=== PATIENT | female | born 1990 | race Caucasian/White ===

== ENCOUNTER 2020-11-29 17:29 | Emergency (ER) | payer MEDICAID, SELFPAY ==
[2020-11-29 17:30] VITALS: BP 137/83; PULSE 88; RESP 18; TEMP 36.6; O2SAT 98; BMI 39.4
--- NOTE | 2020-11-29 17:44 | US_ITS ---
STUDY: FIRST TRIMESTER OBSTETRICAL ULTRASOUND REASON FOR EXAM: Female, 30 years old pelvic cramping. 9+ weeks . LMP: 09/22/2020 TECHNIQUE: Transvaginal TECHNICAL QUALITY: Adequate. PRIOR ULTRASOUND: None. FINDINGS: There is visualization of a single gestational sac in a normal intrauterine position. The mean sac diameter (MSD) measures 2.43 cm, indicating an estimated gestational age (EGA) of 7 weeks, 3 days. The gestational sac shape is within normal limits. There is a visualized yolk sac. The yolk sac measures 0.22 cm. The placenta is non-visualized. There is visualization of an embryo within the gestational sac.. The crown-rump length (CRL) measures 0.45 cm, indicating an estimated gestational age (EGA) of 6 weeks, 2 days. There is no demonstrated cardiac activity. The estimated gestation age (EGA) by LMP is 9 weeks, 5 days. The estimated date of delivery (PIYUSH) by LMP is 06/29/2020. The estimated gestation age (EGA) by US is 6 weeks, 6 days. The estimated date of delivery (PIYUSH) by US is 07/19/2021. The uterus measures 9.2 x 6.8 x 5.5 cm.. There is no demonstrated uterine fibroid. The cervix is closed. The right ovary measures 3.8 x 2.7 x 2.4 cm.. There are multiple follicles of the right ovary without a dominant cyst. There is no visualized right adnexal mass or complex lesion. The left ovary measures 4.4 x 2.6 x 2.0 cm. There is no visualized left adnexal mass or complex lesion. There is no fluid in the cul de sac. US/Transvaginal w/Preg US IMPRESSION: 1. Single intrauterine at 6 weeks, 6 days. PIYUSH is 07/19/2021. There is no demonstrated heart rate at this time. demise versus early . Follow-up recommended. 2. Mildly prominent but otherwise normal ovaries. Electronically Signed: Edgardo Redd DO at 19:55 EDT Tel [phone], Service support ,
--- NOTE | 2020-11-29 17:48 | ED.DCSUM_ITS ---
History of Present Illness Chief Complaint: Abd Pain Informant: Patient Onset: Days Context: Gradual Onset Timing: Waxes and wanes Current Severity: Mild Maximum Severity: Moderate Narrative: Patient presents with lower abdominal cramping and pain. She is currently 8/2 weeks with her first . She states she is considered high risk secondary to a history of SVT and epilepsy. Cramping has been ongoing for the past couple of days. No spotting or bleeding. She states she is in town visiting and her [employer] [place]. She is also complaining of severe migraines for the past couple of days. It is a throbbing headache in the occipital region. She did have vomiting a couple days ago. She states typically she will take naproxen but has only been taking Tylenol with her . - Past Medical History (1) SVT (supraventricular tachycardia) Status: Resolved (2) Epilepsy Status: Chronic Past Medical History - Allergies and Home Meds Allergies/Adverse Reactions: Allergies phenytoin [From Dilantin] Allergy (Verified 11/29/20 17:32) SEIZURES Primary Care Physician: IESHA PONCE [Other] Prior records reviewed: Yes Smoking Status: Former smoker Review of Systems General: Denies: Chills, Fever Eyes: Denies: Visual changes - bilaterally ENT: Denies: Bilateral ear pain Cardiovascular: Denies: Chest pain Respiratory: Denies: Dyspnea, Cough Gastrointestinal: Reports: Abdominal pain, Vomiting. Denies: Diarrhea Genitourinary: Denies: Dysuria, Hematuria Musculoskeletal: Denies: Swelling, Extremity Pain Neurological: Reports: Headache. Denies: Weakness, Parasthesia Hematologic: Denies: Easy bruising, Easy bleeding Allergy: Denies: Uticaria Physical Exam Vital Signs/Narrative: Vital Signs Temp Pulse Resp BP Pulse Ox 11/29/20 17:30 97.9 F 88 18 137/83 H 98 Inital Vital Signs reviewed: Yes General: Well nourished, Well developed Head: Normocephalic ENT: Moist mucous membranes Neck: Supple Cardiovascular: Regular rate, Regular rhythm Respiratory: No distress, CTA bilaterally Abdomen: Soft, Nontender, Hypoactive bowel sounds Extremities: Nontender Skin: Normal color Neurological: Alert, Oriented x3, Normal Strength, Normal Sensation Psychological: Normal affect Diagnostic/Tx/Re-eval Impressions Obstetrics Ultrasound 11/29/20 17:44 IMPRESSION: 1. Single intrauterine at 6 weeks, 6 days. PIYUSH is 07/19/2021. There is no demonstrated heart rate at this time. demise versus early . Follow-up recommended. 2. Mildly prominent but otherwise normal ovaries. Electronically Signed: Edgardo Redd DO at 19:55 EDT Tel [phone], Service support , 11/29/20 17:44 Transvaginal w/Preg US [US] Stat Laboratory Results 11/29/20 11/29/20 11/29/20 18:10 18:10 18:20 HCG, Quant 13901 H Urine Color Straw Urine Clarity Sl. Cloudy Urine pH 6.5 Ur Specific [place] 1.015 Urine Protein Negative Urine Glucose (UA) Normal Urine Ketones Negative Urine Occult Blood Negative Urine Nitrite Negative Urine Bilirubin Negative Urine Urobilinogen Normal Ur Leukocyte Esterase 25 H Urine RBC 0-5 SEEN Urine WBC 0 SEEN Ur Squamous Epith Cells 5-10 SEEN Urine Bacteria 2+ Urine Mucus 0 SEEN Blood Type A POSITIVE - Medical Decision Making Patient was given Reglan, Benadryl, IV fluids. On repeat evaluation patient reports improvement in his headache. Pelvic ultrasound was performed and reveals intrauterine at 6-1/2 to 7-1/2 weeks along. No heart activity noted at this time. No abnormal bleeding. Test results discussed with the patient. She is reassured with these findings and will follow up with her [employer]. ED Disposition - Plan for ED Patient: Disposition: Home or Assisted Living Diagnosis: Pelvic cramping, First trimester , Migraine Instructions: ED, Migraine (Classical), ED Abdominal Pain, Early Referrals: IESHA PONCE [Other]
[2020-11-29] MEDS: Metoclopramide 10 MG/2 ML Vial 5 MG IV (18:09)
[2020-11-29] MEDS: DiphenhydrAMINE 50 MG/ML Syringe 25 MG IV (18:09)
[2020-11-29] MEDS: 0.9% Normal Saline 1,000 ML 1000 ML IV (18:09)
[2020-11-29 18:35] LABS: Mucous, Urine 0 SEEN /hpf (<or=2+); White Blood Cells 0 SEEN /hpf (0-5)
[2020-11-29 18:58] LABS: Color, Urine Straw (Yellow); Glucose, Dipstick Normal (Normal); Ketone-Dipstick Negative (Negative); Leukocyte Esterase-Dipstick 25 /ul (Negative); Nitrite-Dipstick Negative (Negative); Occult Blood-Urine Negative /ul (Negative); Protein-Dipstick Negative (Negative); Specific Gravity, Urine 1.015 (1.002-1.030); Urine Bilirubin Dipstick Negative (Negative); Urine Clarity Sl. Cloudy (Clear); Urine Urobilinogen Normal (Normal); Urine pH 6.5 (5.0 - 8.0)
[2020-11-29 19:15] LABS: Bacteria 2+ /hpf (None Seen); Red Blood Cells-Urine 0-5 SEEN /hpf (0-5); Squamous Epithelial Cells - UA 5-10 SEEN /hpf (5-10)
[2020-11-29 20:23] VITALS: BP 123/67; PULSE 86; RESP 16; O2SAT 100
== END 2020-11-29 20:24 | disposition home or self-care (01) ==
PROVIDERS: Emergency Provider Emergency Medicine
DX: O26.891 Other specified pregnancy related conditions, first trimester (principal); O99.351 Diseases of the nervous system complicating pregnancy, first trimester; R10.2 Pelvic and perineal pain; G43.909 Migraine, unspecified, not intractable, without status migrainosus; Z3A.01 Less than 8 weeks gestation of pregnancy; Z87.891 Personal history of nicotine dependence
CPT/HCPCS: 76817; 81001; 84702; 86900; 86901; 96374; 96375; 99284; J7030; A4216

== ENCOUNTER 2022-04-20 18:31 | Emergency (ER) | payer MEDICAID, SELFPAY ==
[2022-04-20 18:32] VITALS: BP 133/94; PULSE 96; RESP 20; TEMP 36.6; O2SAT 100; BMI 30.9
--- NOTE | 2022-04-20 18:36 | EKG12_ITS ---
Test Reason : CP Blood Pressure : / mmHG Vent. Rate : 079 BPM Atrial Rate : 079 BPM P-R Int : 122 ms QRS Dur : 084 ms QT Int : 384 ms P-R-T Axes : 066 059 026 degrees QTc Int : 440 ms Normal sinus rhythm Normal ECG Confirmed by EDMOND GARCÍA, CAROLA ([id number]), editor managing director RADHA RODRIGUEZ ([id number]) on 04/24/2022 7:49:19 AM Referred By: JYOTI Confirmed By:CAROLA PRUITT MD
--- NOTE | 2022-04-20 18:52 | RAD_ITS ---
STUDY: X-RAY CHEST REASON FOR EXAM: Female, 31 years old. CHEST PAIN chest pain TECHNIQUE: XR Chest 1 View COMPARISON: None FINDINGS: There is no demonstrated pleural abnormality. Normal size heart. Normal mediastinum and john. Normal visualized pulmonary arteries. Normal visualized aortic arch and descending thoracic aorta. Normal visualized thoracic spine. Normal visualized ribs, clavicles, and shoulders. There is no demonstrated abnormality of the visualized soft tissue structures of the upper abdomen. RAD/Chest 1 View (Portable) IMPRESSION: There are no acute findings. Electronically Signed: Magen Light MD at 19:24 EDT ,
[2022-04-20 19:17] LABS: Anion Gap 7 (5-15); BUN 10 mg/dL (7-18); BUN/Creat Ratio 12.9 RATIO (10-20); Chloride 108 mmol/L (98-107); Creatinine, Serum 0.77 mg/dL (0.55-1.02); EST Glomerular Filtration Rate 92 mL/min (>60); Est Glom Filt Rate - Afr Amer 111 mL/min (>60); Estimated Creatinine Clearance 91.41 ml/min; Glucose 92 mg/dL (74-106); Potassium 3.6 mmol/L (3.5-5.1); Sodium Level 137 mmol/L (136-145); Troponin-I HS 3 pg/mL (3.0-54.0)
[2022-04-20 19:54] LABS: Absolute Lymphocyte Count 1.24 X10^3/uL (0.83-4.51); Absolute Neutrophil Count 2.6 X10^3/uL (2.0-7.7); Basophil# 0.03 X10^3/uL; Basophil% 0.6 % (0-1); Eosinophil# 0.19 X10^3/uL; Hematocrit 41.3 % (37-47); Hemoglobin 13.4 g/dL (12.0-15.0); Lymphocyte # 1.24 X10^3/ul (0.83-4.51); Lymphocyte % 25.9 % (19-41); Mean Corp Hgb Conc 32.4 g/dL (32-36); Mean Corpuscular Hgb 25.4 pg (27.0-32.0); Mean Corpuscular Volume 78.4 fL (81-99); Mean Platelet Vol. 11.2 fl (6.2-12.0); Monocyte# 0.71 X10^3/uL; Monocyte% 14.8 % (0-10); NRBC Flagged by Analyzer 0 % (0-5); Neutrophil % 54.3 % (47-70); Platelet Count 237 K/mm3 (150-450); RBC Distribution Width SD 42.5 fl (35.1-43.9); Red Blood Count 5.27 M/mm3 (4.2-5.4); White Blood Count 4.8 K/mm3 (4.4-11.0)
[2022-04-20 20:50] VITALS: BP 135/89; PULSE 66; RESP 14; TEMP 37.3; O2SAT 98
[2022-04-20] MEDS: Ondansetron 4 MG/2 ML Vial IV (21:15)
[2022-04-20] MEDS: 0.9% Normal Saline 1,000 ML 999 ML IV (21:19)
[2022-04-20 22:42] VITALS: BP 148/94; PULSE 60; RESP 15; O2SAT 98
--- NOTE | 2022-04-20 23:07 | EDS_ITS ---
HPI History of Present Illness Chief Complaint: Chest Pain Informant: patient Narrative Narrative: Patient is a 31-year-old female with history of SVT, asthma, epilepsy and recent diagnosis of COVID-19 infection presenting chest discomfort, cough and other viral illness symptoms. Patient states she was worried because of the dark phlegm that she has been coughing up and her history of SVT/asthma and thought she should be evaluated. She started having symptoms 2 days ago and had a positive COVID test yesterday. His symptoms started with a sore throat. She now feels cold, has nausea, vomiting, diarrhea, body aches and chest discomfort from coughing. Denies any fever. Denies any difficulty breathing. 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 No other complaints at this time. [facility] Medical History Asthma SVT (supraventricular tachycardia) Home Medications buspirone 10 mg tablet 10 mg PO TID 04/20/22 [History Last Taken Unknown] fluvoxamine 100 mg tablet 100 mg PO BID 04/20/22 [History Last Taken Unknown] ondansetron 4 mg disintegrating tablet 4 mg PO Q6H PRN nausea and vomiting #20 tabs 04/20/22 [Rx Last Taken Unknown] prazosin 1 mg capsule 2 mg PO QHS 04/20/22 [History Last Taken Unknown] trazodone 50 mg tablet 50 mg PO QHS PRN Insomnia 04/20/22 [History Last Taken Unknown] Allergy/AdvReac Type Severity Reaction Status Date / Time phenytoin [From Dilantin] Allergy SEIZURES Verified 04/20/22 18:33 Social History Smoking Status: Current every day smoker tobacco type: cigarettes ROS ROS ED Constitutional Constitutional ED: Reports chills; Denies fever(s) Eyes Eyes: Denies change in vision ENT ENT ED: Reports sore throat; Denies ear pain or rhinorrhea Cardiovascular Cardiovascular: Reports chest pain; Denies palpitations Respiratory/Chest Respiratory/Chest: Reports cough; Denies dyspnea Gastrointestinal Gastrointestinal: Reports diarrhea, nausea and vomiting; Denies abdominal pain Genitourinary Genitourinary ED: Denies dysuria or hematuria Musculoskeletal Musculoskeletal: Reports myalgias; Denies arthralgias or back pain Integumentary Denies rash Neurologic Neurologic: Reports headache(s); Denies paresthesias or weakness Psychiatric Psychiatric: Denies anxiety EXAM Physical Exam Const Vital Signs: 04/20/22 18:32 04/20/22 20:50 04/20/22 20:52 Temperature 97.8 F 99.1 F Temperature Source Temporal Oral Pulse Rate 96 66 Respiratory Rate 20 H 14 Blood Pressure 133/94 H 135/89 H Blood Pressure Mean 107 104 Pulse Ox 100 98 Oxygen Delivery Method Room Air Room Air Room Air 04/20/22 22:42 Temperature Temperature Source Pulse Rate 60 Respiratory Rate 15 Blood Pressure 148/94 H Blood Pressure Mean 112 Pulse Ox 98 Oxygen Delivery Method Room Air Positive well nourished and well developed General Appearance ED: well developed and NAD HEENT Reports TM's clear and moist mucous membranes atraumatic Tympanic Membrane ED: Yes TM's clear Eyes PERRL and EOMs intact bilaterally Neck supple and no JVD Neck Narrative: No nuchal rigidity Chest Wall inspection of chest normal and palpation of chest normal Resp normal respiratory effort and clear to auscultation bilaterally Auscultation: rhonchi right lower; Negative for wheezes Cardio regular rate, regular rhythm and no murmurs GI normal to inspection, nondistended, normoactive bowel sounds and soft to palpation Back/Spine no CVA tenderness Extremity normal to inspection General Extremety ED: Negative for edema or pulses abnormal General Extremity: Negative for edema or pulses abnormal Neuro oriented x3 Motor Exam: Negative for general weakness Psych mental status grossly normal Skin no rashes or lesions noted Heart Score History: Slightly/Non-Suspicious ECG: Normal Age: </= 45 years Risk Factors: 1 or 2 Risk Factors Troponin: </= Normal Limit Score: 1 MDM MDM MDM Narrative Medical decision making narrative: Patient is evaluated for chest discomfort in the setting of recent COVID-19 infection. She appears nontoxic in no acute distress. Vital signs are normal. She is PE RC negative I do not suspect a PE is the cause of her symptoms. EKG and has since he troponin are normal. Chest x-rays not show any acute process. Work-up is largely unremarkable. Patient is given IV fluids and Zofran with improvement of her symptoms. She states she feels better. Discussed that if she still not feeling well and she is within 5 days of symptoms she should not go back to work. She verbalized agreement understand this. She is given return precautions. She is discharged home in stable condition. Lab Data Labs: Laboratory Results - last 24 hr 04/20/22 04/20/22 18:51 18:51 WBC 4.8 RBC 5.27 Hgb 13.4 Hct 41.3 MCV 78.4 L MCH 25.4 L MCHC 32.4 RDW Std Deviation 42.5 RDW Coeff of Chay 15.0 H Plt Count 237 MPV 11.2 Immature Gran % (Auto) 0.400 Neut % (Auto) 54.3 Lymph % (Auto) 25.9 [place] % (Auto) 14.8 H Eos % (Auto) 4.0 Baso % (Auto) 0.6 Absolute Neuts (auto) 2.6 Absolute Lymphs (auto) 1.24 Nucleated RBC % 0 Sodium 137 Potassium 3.6 Chloride 108 H Carbon Dioxide 22.0 Anion Gap 7 BUN 10 Creatinine 0.77 Estim Creat Clear Calc 91.41 Est GFR (MDRD) Af Amer 111 Est GFR (MDRD) Non-Af 92 BUN/Creatinine Ratio 12.9 Glucose 92 Calcium 9.0 Troponin I High Sens 3 Radiography Chest X-Ray - ED: 2 View, Read by ED Physician, Read by Radiologist and No Acute Disease Diagnostic Testing: Clinical Impression(s) from Imaging Studies Chest X-Ray 04/20/22 18:52 IMPRESSION: There are no acute findings. Electronically Signed: Magen Light MD at 19:24 EDT Reading Location ID and State: [facility] / [place] , Service support , Rhythm Strip Rhythm Strip: Sinus Rhythm Rate: 79 Ectopy: None EKG Initial EKG: Attestation: I personally reviewed and interpreted this EKG as follows: Interpretation: Sinus Rhythm Comments: Normal sinus rhythm rate of 79 Normal axis Normal intervals Normal ST segments Discharge Plan Triage Chief Complaint: Chest Pain ED Provider: Adri Araujo Dx/Rx/DC Orders Clinical Impression: COVID-19, Nausea, Chest pain Instructions: Coronavirus Disease 2019 (COVID-19): Caring for Yourself or Others Prescriptions: New ondansetron 4 mg tablet,disintegrating 4 mg PO Q6H PRN (Reason: nausea and vomiting) Qty: 20 0RF No Action trazodone 50 mg Tablet 50 mg PO QHS PRN (Reason: Insomnia) prazosin 1 mg capsule 2 mg PO QHS fluvoxamine 100 mg tablet 100 mg PO BID Label Comments: TAKE 1/2 (ONE-HALF) TABLET BY MOUTH ONCE DAILY IN THE MORNING AND 1 TABLET EVERY DAY AT BEDTIME FOR 7 DAYS THEN GO TO 1 TABLET TWICE DAILY buspirone 10 mg Tablet 10 mg PO TID Primary Care Provider: Care Physician,No Primary Referrals: Care Physician,No Primary [Primary Care Provider] - Activity Restrictions/Additional Instructions: You should quarantine for 5 days, longer if you are still feeling unwell. Drink lots of fluids. Disposition Disposition: Home, Self Care
[2022-04-20 23:20] VITALS: BP 126/90
== END 2022-04-20 23:21 | disposition home or self-care (01) ==
PROVIDERS: Emergency Provider Emergency Medicine; Visit Provider Emergency Medicine
DX: U07.1 COVID-19 (principal); I47.1 Supraventricular tachycardia; G40.909 Epilepsy, unspecified, not intractable, without status epilepticus; F17.210 Nicotine dependence, cigarettes, uncomplicated; J45.909 Unspecified asthma, uncomplicated; Z79.899 Other long term (current) drug therapy
CPT/HCPCS: 71045; 80048; 84484; 85025; 93005; 96361; 96374; 99284; A4216; J2405

== ENCOUNTER 2022-08-22 14:46 | Emergency (ER) | payer MEDICAID, SELFPAY ==
[2022-08-22 14:47] VITALS: BP 130/92; PULSE 87; RESP 16; TEMP 36.4; O2SAT 98; BMI 32.5
[2022-08-22 14:49] VITALS: BP 130/92; PULSE 87; RESP 16; TEMP 36.4; O2SAT 96; O2SAT 98
--- NOTE | 2022-08-22 15:07 | EDS_ITS ---
HPI HPI - URI History of Present Illness Chief Complaint: Cough Narrative Narrative: 32-year-old female past medical history of SVT and epilepsy presents with URI type symptoms that she has had for the last 5 days. She states her symptoms began on Saturday and somewhat intermittent. She had nasal congestion alternating with runny nose. She had subjective fever and chills. She then had nausea and vomiting. She developed loose stool and diarrhea. She is able to hold down liquids but states that she vomits when she tries to eat. She had to call off work today. She is a smoker. She denies any exacerbating or alleviating factors but states that she wanted to make sure she was not dehydrated from her nausea and vomiting, although she has been drinking liquids. She is unsure if she has influenza. ROS ROS ED ROS Narrative Constitutional: No documented fever subjective however, positive chills. HEENT: No sore throat. No neck pain. No loss of vision. Positive nasal congestion and rhinorrhea. Cardiovascular: No chest pain. No palpitations. No pedal edema. Respiratory: Positive occasionally productive cough, no shortness of breath. Abdominal: No abdominal pain. Positive nausea. Positive diarrhea and vomiting. Able to hold down liquids however. Genitourinary: No dysuria. No hematuria. Musculoskeletal: Positive myalgias. No arthralgias. Neurologic: No headaches. No dizziness. No lightheadedness. Skin: No rash. No change in color. Psychiatric: No depression. No anxiety. [facility] Medical History Asthma SVT (supraventricular tachycardia) Home Medications buspirone 10 mg tablet 10 mg PO TID 04/20/22 [History Last Taken Unknown] fluvoxamine 100 mg tablet 100 mg PO BID 04/20/22 [History Last Taken Unknown] ondansetron 4 mg disintegrating tablet 4 mg PO Q6H PRN nausea and vomiting #20 tabs 04/20/22 [Rx Last Taken Unknown] prazosin 1 mg capsule 2 mg PO QHS 04/20/22 [History Last Taken Unknown] trazodone 50 mg tablet 50 mg PO QHS PRN Insomnia 04/20/22 [History Last Taken Unknown] ondansetron 4 mg disintegrating tablet 4 mg PO Q6H PRN nausea and vomiting #14 tabs 08/22/22 [Rx Last Taken Unknown] Allergy/AdvReac Type Severity Reaction Status Date / Time phenytoin [From Dilantin] Allergy SEIZURES Verified 08/22/22 14:47 Social History Smoking Status: Current every day smoker tobacco type: cigarettes EXAM Physical Exam Narrative Exam Narrative: Afebrile. Vital signs noted. HEENT: Normocephalic. Atraumatic. PERRL, EOMI. Neck soft and supple. No point tenderness or step off. Cardiovascular: Regular rate and rhythm. No murmurs, rubs, or gallops appreciated. Respiratory: No tachypnea. Lungs clear to auscultation bilaterally. Gastrointestinal: Abdomen soft, nontender, with normoactive bowel sounds. No rebound or guarding. Neurological: Awake. Alert. Nonfocal, nonlateralizing. Skin: No rash. Normal color. No pallor. Musculoskeletal: No pedal edema. Full range of motion extremities. Const Vital Signs: 08/22/22 14:47 08/22/22 14:49 08/22/22 14:49 Temperature 97.6 F L 97.6 F L Temperature Source Temporal Temporal Pulse Rate 87 87 Respiratory Rate 16 16 Respiratory Effort Normal Blood Pressure 130/92 H 130/92 H Blood Pressure Mean 104 104 Pulse Ox 98 98 Oxygen Delivery Method Room Air Room Air Room Air MDM MDM MDM Narrative Medical decision making narrative: Pulse ox is 98% on room air without evidence of hypoxia. Patient states that she vapes, so smoking cessation was discussed. She is not tachycardic. I do not feel that she needs IV fluids or chest x-ray. We discussed the utility of swabbing and I do feel that she has more of a viral syndrome as she is already in day 5 of her symptoms. Treatment will be symptomatic with [id number] medications. She was given 1 Zofran ODT here in the emergency department and a prescription written for her. She was given a note to be off work today. IFISH can be discharged safely home with follow-up. Return instructions to the emergency department were reviewed. Disposition is discharged home in stable condition. Discharge Plan Triage Chief Complaint: Cough ED Provider: Paulino Dave Dx/Rx/DC Orders Clinical Impression: URI (upper respiratory infection), Viral syndrome Instructions: ED Viral Syndrome (Adult), ED URI, Viral, No Abx (Adult) Prescriptions: New ondansetron 4 mg tablet,disintegrating 4 mg PO Q6H PRN (Reason: nausea and vomiting) Qty: 14 0RF No Action trazodone 50 mg Tablet 50 mg PO QHS PRN (Reason: Insomnia) prazosin 1 mg capsule 2 mg PO QHS fluvoxamine 100 mg tablet 100 mg PO BID Label Comments: TAKE 1/2 (ONE-HALF) TABLET BY MOUTH ONCE DAILY IN THE MORNING AND 1 TABLET EVERY DAY AT BEDTIME FOR 7 DAYS THEN GO TO 1 TABLET TWICE DAILY buspirone 10 mg Tablet 10 mg PO TID ondansetron 4 mg tablet,disintegrating 4 mg PO Q6H PRN (Reason: nausea and vomiting) Qty: 20 0RF Stand Alone Forms: ED Work / School Excuse Primary Care Provider: Care Physician,No Primary Referrals: Care Physician,No Primary [Primary Care Provider] - Disposition Disposition: Home, Self Care
[2022-08-22] MEDS: Ondansetron ODT 4 MG Tablet PO (15:21)
[2022-08-22 15:23] VITALS: PULSE 88; RESP 15; O2SAT 99
== END 2022-08-22 15:23 | disposition home or self-care (01) ==
LOC: ED 15:12
PROVIDERS: Emergency Provider Emergency Medicine; Visit Provider Emergency Medicine
DX: J06.9 Acute upper respiratory infection, unspecified (principal); B34.9 Viral infection, unspecified; F17.210 Nicotine dependence, cigarettes, uncomplicated
CPT/HCPCS: 99283

== ENCOUNTER 2022-09-25 12:54 | Emergency (ER) | payer MEDICAID, SELFPAY ==
[2022-09-25 12:55] VITALS: BP 128/89; PULSE 82; RESP 15; TEMP 36.8; O2SAT 97; BMI 34.5
--- NOTE | 2022-09-25 13:29 | RAD_ITS ---
STUDY: X-RAY CHEST REASON FOR EXAM: Female, 32 years old. Chest pain TECHNIQUE: Single AP portable view of the chest. COMPARISON: Comparison is made with prior study 04/20/2022. FINDINGS: EKG electrodes are seen. Scattered calcified granulomas. The lungs are clear and expanded. There is no demonstrated pleural abnormality. Normal size heart. Normal mediastinum and john. Normal visualized pulmonary arteries. Normal visualized aortic arch and descending thoracic aorta. Normal visualized thoracic spine. Normal visualized ribs, clavicles, and shoulders. There is no demonstrated abnormality of the visualized soft tissue structures of the upper abdomen. RAD/Chest 1 View (Portable) IMPRESSION: No acute abnormality is seen. Electronically Signed: Lai Stevenson MD at 14:23 EST ,
--- NOTE | 2022-09-25 13:29 | EKG12_ITS ---
Test Reason : PALPITATIONS Blood Pressure : / mmHG Vent. Rate : 062 BPM Atrial Rate : 062 BPM P-R Int : 114 ms QRS Dur : 090 ms QT Int : 416 ms P-R-T Axes : 059 060 036 degrees QTc Int : 422 ms Normal sinus rhythm with sinus arrhythmia Normal ECG Confirmed by JAMAL GARCÍA, BAIRON ([id number]), managing editor ALEXANDER LAWRENCE ([id number]) on 09/26/2022 9:14:46 AM Referred By: RICHARD Confirmed By:BAIRON BERRY MD
[2022-09-25 13:43] LABS: Absolute Lymphocyte Count 2.23 X10^3/uL (0.83-4.51); Absolute Neutrophil Count 4.8 X10^3/uL (2.0-7.7); Basophil# 0.04 X10^3/uL; Basophil% 0.5 % (0-1); Eosinophil# 0.41 X10^3/uL; Eosinophils% 5.1 % (0-5); Hematocrit 37.7 % (37-47); Hemoglobin 12.2 g/dL (12.0-15.0); Lymphocyte # 2.23 X10^3/ul (0.83-4.51); Lymphocyte % 27.5 % (19-41); Mean Corp Hgb Conc 32.4 g/dL (32-36); Mean Corpuscular Hgb 25.5 pg (27.0-32.0); Mean Corpuscular Volume 78.7 fL (81-99); Mean Platelet Vol. 10.6 fl (6.2-12.0); Monocyte% 7.4 % (0-10); NRBC Flagged by Analyzer 0 % (0-5); Neutrophil % 59.3 % (47-70); Platelet Count 283 K/mm3 (150-450); RBC Distribution Width CV 15.5 % (11.6-14.6); RBC Distribution Width SD 44.1 fl (35.1-43.9); Red Blood Count 4.79 M/mm3 (4.2-5.4); White Blood Count 8.1 K/mm3 (4.4-11.0)
--- NOTE | 2022-09-25 13:44 | CM.ED ---
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 Patient was sitting in bed and agreeable to speak with SW. SW inquired about patient's insurance and current PCP. [facility] and did not have a P[facility] currently. SW provided patient with list of PCPs within 15 miles of patient's address [facility] SW also reviewed Where and When to Go information, focusing on nurse and transportation information associated with patient's insurance. Patient was receptive towards resources provided and voiced no other needs or concerns. SW available if needs arise. Nia Hunt MDM SR, [place]
--- NOTE | 2022-09-25 13:49 | EDS_ITS ---
HPI History of Present Illness Chief Complaint: Palpitations Informant: patient Onset/Context/Timing Onset: Today (Past hour or 2) Activity at onset: sudden and onset Timing: Intermittent and Lasts (Seconds) Quality: Positive for Dull Location: - (Upper mid chest without radiation.) Current Severity: Gone Maximum Severity: Mild-moderate Worsened By: Nothing Relieved By: Nothing Associated Symptoms: Positive for Palpitations; Negative for Nausea, Vomiting, D iaphoresis, Dyspnea, Cough or Lightheadedness Narrative Narrative: Patient states she felt intermittent skipping palpitations and upper chest discomfort that would occur together and resolved together repeatedly in the past hour or 2. She states she has had this in the past but it was long time ago, sometimes it led to episodes of SVT. She was on a beta-val, following with a salvage mechanic and she did not have any episodes for a long time so she discontinued the beta-val months ago, and she has not followed up with a salvage mechanic, that was not in this town. She currently does not take any heart medications. She had no near-syncope or syncope today. No recent illness, fall or injury, no recent drugs or stimulants today, and she is feeling fine now. Patient states she was offered an ablation but wants to try everything else first because she had a poor experience having a prior procedure and sedation where she ended up having seizures. [facility] Medical History Asthma SVT (supraventricular tachycardia) Home Medications buspirone 10 mg tablet 10 mg PO TID 04/20/22 [History Last Taken Unknown] fluvoxamine 100 mg tablet 100 mg PO BID 04/20/22 [History Last Taken Unknown] ondansetron 4 mg disintegrating tablet 4 mg PO Q6H PRN nausea and vomiting #20 tabs 04/20/22 [Rx Last Taken Unknown] prazosin 1 mg capsule 2 mg PO QHS 04/20/22 [History Last Taken Unknown] trazodone 50 mg tablet 50 mg PO QHS PRN Insomnia 04/20/22 [History Last Taken Unknown] ondansetron 4 mg disintegrating tablet 4 mg PO Q6H PRN nausea and vomiting #14 t abs 08/22/22 [Rx Last Taken Unknown] metoprolol tartrate 25 mg tablet 12.5 mg PO BID #30 tabs 09/25/22 [Rx Last Taken Unknown] Allergy/AdvReac Type Severity Reaction Status Date / Time phenytoin [From Dilantin] Allergy SEIZURES Verified 09/25/22 12:55 Social History Smoking Status: Former smoker ROS ROS ED Constitutional Constitutional ED: Denies chills or fever(s) Eyes Eyes: Denies change in vision or diplopia ENT ENT ED: Denies rhinorrhea or sore throat Cardiovascular Cardiovascular: Reports chest pain and palpitations; Denies lightheadedness or racing heartbeat Respiratory/Chest Respiratory/Chest: Denies cough or dyspnea Gastrointestinal Gastrointestinal: Denies abdominal pain, diarrhea, nausea or vomiting Genitourinary Genitourinary ED: Denies dysuria or hematuria Musculoskeletal Musculoskeletal: Denies back pain or neck pain Integumentary Denies abscess or rash Neurologic Neurologic: Denies headache(s), paresthesias or weakness Psychiatric Psychiatric: Denies anxiety or suicidal thoughts EXAM Physical Exam Const Vital Signs: 09/25/22 12:55 09/25/22 13:19 09/25/22 13:35 Temperature 98.3 F Temperature Source Temporal Pulse Rate 82 Respiratory Rate 15 Respiratory Effort Normal Non-Labored Blood Pressure 128/89 H Blood Pressure Mean 102 Pulse Ox 97 Oxygen Delivery Method Room Air Room Air Positive well nourished and well developed General Appearance ED: well developed and NAD HEENT Reports moist mucous membranes normocephalic and atraumatic Eyes PERRL and EOMs intact bilaterally Neck full ROM and supple Resp normal respiratory effort and clear to auscultation bilaterally Cardio regular rate, regular rhythm and no murmurs GI non-tender and non-distended Auscultation: normoactive bowel sounds Palpation: soft Back/Spine no CVA tenderness General Back: other FROM Extremity normal to inspection General Extremety ED: Negative for edema, pulses abnormal or tenderness General Extremity: Negative for edema or pulses abnormal Neuro oriented x3, CN's II-XII intact bilaterally and no sensory deficits noted Sensorium / Orientation: awake and alert Motor Exam: strength 5/5 throughout Skin no rashes or lesions noted and no wounds Heart Score History: Slightly/Non-Suspicious ECG: Normal Age: </= 45 years Risk Factors: 1 or 2 Risk Factors Troponin: </= Normal Limit Score: 1 MDM MDM MDM Narrative Medical decision making narrative: Work-up including 1 view chest x-ray which on my interpretation is normal, and troponin, is negative. I do not think she is having acute coronary syndrome, I think the discomfort was related to the palpitations and/or dysrhythmia. Patient was given metoprolol 25 mg orally while we were awaiting the work-up, she had no recurrent symptoms and felt well. She has tolerated low-dose metoprolol in the past. We will prescribe her 12.5 mg twice daily and advised following up with cardiology routinely, she is comfortable with that plan. We discussed reasons to return. Lab Data Attestation: I reviewed the patient's lab results. Labs: Laboratory Results - last 24 hr 09/25/22 09/25/22 13:36 13:36 WBC 8.1 RBC 4.79 Hgb 12.2 Hct 37.7 MCV 78.7 L MCH 25.5 L MCHC 32.4 RDW Std Deviation 44.1 H RDW Coeff of Chay 15.5 H Plt Count 283 MPV 10.6 Immature Gran % (Auto) 0.200 Neut % (Auto) 59.3 Lymph % (Auto) 27.5 [place] % (Auto) 7.4 Eos % (Auto) 5.1 H Baso % (Auto) 0.5 Absolute Neuts (auto) 4.8 Absolute Lymphs (auto) 2.23 Nucleated RBC % 0 Sodium 139 Potassium 3.9 Chloride 108 H Carbon Dioxide 25.0 Anion Gap 6 BUN 14 Creatinine 0.76 Estim Creat Clear Calc 91.77 Est GFR (MDRD) Af Amer 113 Est GFR (MDRD) Non-Af 94 BUN/Creatinine Ratio 18.4 Glucose 118 H Calcium 8.4 L Troponin I High Sens < 3 L Radiography Diagnostic Testing: Clinical Impression(s) from Imaging Studies Chest X-Ray 09/25/22 13:29 IMPRESSION: No acute abnormality is seen. Electronically Signed: Lai Stevenson MD at 14:23 EST , Rhythm Strip Rhythm Strip: Sinus Rhythm Rate: 65 Ectopy: None EKG Initial EKG: Attestation: I personally reviewed and interpreted this EKG as follows: Interpretation: Sinus Rhythm and No Acute Injury Pattern Comments: nml EKG Prior EKG tracings: available for review Prior: Unchanged Discharge Plan Triage Chief Complaint: Palpitations ED Provider: Zackery Sauer Dx/Rx/DC Orders Clinical Impression: Intermittent chest pain, Palpitations Instructions: ED Palpitations Prescriptions: New metoprolol tartrate 25 mg tablet 12.5 mg PO BID Qty: 30 0RF No Action trazodone 50 mg Tablet 50 mg PO QHS PRN (Reason: Insomnia) prazosin 1 mg capsule 2 mg PO QHS fluvoxamine 100 mg tablet 100 mg PO BID Label Comments: TAKE 1/2 (ONE-HALF) TABLET BY MOUTH ONCE DAILY IN THE MORNING AND 1 TABLET EVERY DAY AT BEDTIME FOR 7 DAYS THEN GO TO 1 TABLET TWICE DAILY buspirone 10 mg Tablet 10 mg PO TID ondansetron 4 mg tablet,disintegrating 4 mg PO Q6H PRN (Reason: nausea and vomiting) Qty: 20 0RF ondansetron 4 mg tablet,disintegrating 4 mg PO Q6H PRN (Reason: nausea and vomiting) Qty: 14 0RF Primary Care Provider: Care Physician,No Primary Referrals: Miguel Mansfield MD [Med Staff - Active Staff] - (call for appt for local cardiology follow up) Care Physician,No Primary [Primary Care Provider] - Disposition Disposition: Home, Self Care
[2022-09-25 14:00] LABS: Anion Gap 6 (5-15); BUN 14 mg/dL (7-18); BUN/Creat Ratio 18.4 RATIO (10-20); Calcium,Total 8.4 mg/dL (8.5-10.1); Chloride 108 mmol/L (98-107); Creatinine, Serum 0.76 mg/dL (0.55-1.02); EST Glomerular Filtration Rate 94 mL/min (>60); Est Glom Filt Rate - Afr Amer 113 mL/min (>60); Estimated Creatinine Clearance 91.77 ml/min; Glucose 118 mg/dL (74-106); Potassium 3.9 mmol/L (3.5-5.1); Sodium Level 139 mmol/L (136-145); Troponin-I HS < 3 pg/mL (3.0-54.0)
[2022-09-25] MEDS: Metoprolol Tartrate 25 MG Tablet PO (14:03)
[2022-09-25 15:16] VITALS: BP 125/80; PULSE 58; RESP 14; O2SAT 99
== END 2022-09-25 15:16 | disposition home or self-care (01) ==
PROVIDERS: Emergency Provider Emergency Medicine; Visit Provider Emergency Medicine
DX: R07.9 Chest pain, unspecified (principal); R00.2 Palpitations; Z87.891 Personal history of nicotine dependence
CPT/HCPCS: 71045; 80048; 84484; 85025; 93005; 99285; A4216

== ENCOUNTER 2022-10-08 09:02 | Emergency (ER) | payer MEDICAID, SELFPAY ==
[2022-10-08 09:02] VITALS: BP 155/96; PULSE 95; RESP 16; TEMP 36.2; O2SAT 100; BMI 31.9
--- NOTE | 2022-10-08 09:34 | EKG12_ITS ---
Test Reason : Blood Pressure : / mmHG Vent. Rate : 059 BPM Atrial Rate : 059 BPM P-R Int : 112 ms QRS Dur : 090 ms QT Int : 438 ms P-R-T Axes : 065 060 050 degrees QTc Int : 433 ms Sinus bradycardia with sinus arrhythmia Otherwise normal ECG Confirmed by JAMAL GARCÍA, BAIRON ([id number]), international editorial producer ALEXANDER LAWRENCE ([id number]) on 10/09/2022 8:30:45 AM Referred By: Confirmed By:BAIRON BERRY MD
--- NOTE | 2022-10-08 09:49 | EX.ED.DYSGE1 ---
HPI History of Present Illness Chief Complaint: Hypertension Informant: patient Narrative Narrative: Presents by private evaluation still intermittent palpitations chest pain and lightheaded symptoms. She reported concerning of elevated blood pressure. Today at work 160s over 110s. She has history of SVT states she was seen in the ED approximately 2 weeks ago. She states symptoms resolved. However she was placed on metoprolol 12.5 mg twice a day. She has been taking these medications. She is concerned due to blood pressure running in the family. States previously with her PCP has not been told she had elevated blood pressure. However due to her numbers she is concerned of stroke like levels. She stopped smoking. History of asthma. Denies dyspnea or wheeze. History of epilepsy. She does have a appointment with her PCP today at 3 PM. Reviewing records from a couple weeks ago she was seen for palpitations negative work-up there is discussion her previous history of SVTs in the past he did not follow-up with cardiology she stopped her val previously therefore this was restarted. Also noted she was offered ablation from history however wanted medical management. Prior similar symptoms: Yes [facility] Medical History Asthma SVT (supraventricular tachycardia) Home Medications buspirone 10 mg tablet 10 mg PO TID 04/20/22 [History Last Taken Unknown] fluvoxamine 100 mg tablet 100 mg PO BID 04/20/22 [History Last Taken Unknown] ondansetron 4 mg disintegrating tablet 4 mg PO Q6H PRN nausea and vomiting #20 tabs 04/20/22 [Rx Last Taken Unknown] prazosin 1 mg capsule 2 mg PO QHS 04/20/22 [History Last Taken Unknown] trazodone 50 mg tablet 50 mg PO QHS PRN Insomnia 04/20/22 [History Last Taken Unknown] ondansetron 4 mg disintegrating tablet 4 mg PO Q6H PRN nausea and vomiting #14 tabs 08/22/22 [Rx Last Taken Unknown] metoprolol tartrate 25 mg tablet 12.5 mg PO BID #30 tabs 09/25/22 [Rx Last Taken Unknown] Allergy/AdvReac Type Severity Reaction Status Date / Time phenytoin [From Dilantin] Allergy SEIZURES Verified 10/08/22 09:04 Social History Smoking Status: Former smoker ROS ROS ED Constitutional Constitutional ED: Denies chills, fever(s) or sweats Eyes Eyes: Denies change in vision ENT ENT ED: Denies dysphagia or sore throat Cardiovascular Cardiovascular: Reports chest pain and palpitations; Denies leg edema or racing heartbeat Respiratory/Chest Respiratory/Chest: Denies cough, dyspnea or dyspnea on exertion Gastrointestinal Gastrointestinal: Denies abdominal pain, diarrhea, nausea or vomiting Genitourinary Genitourinary ED: Denies dysuria, hematuria or urinary frequency Musculoskeletal Musculoskeletal: Denies back pain, extremity pain or neck pain Integumentary Denies rash or wounds Neurologic Neurologic: Denies headache(s), paresthesias or weakness EXAM Physical Exam Const Vital Signs: 10/08/22 09:02 10/08/22 09:02 Temperature 97.1 F L Temperature Source Temporal Pulse Rate 95 Respiratory Rate 16 Respiratory Effort Normal Respiratory Pattern Normal Blood Pressure 155/96 H Blood Pressure Mean 115 Pulse Ox 100 Oxygen Delivery Method Room Air Positive well nourished and well developed General Appearance ED: well developed and NAD HEENT Reports moist mucous membranes normocephalic and atraumatic Eyes PERRL, EOMs intact bilaterally and conjunctivae normal General Eye ED: Yes normal appearance of both eyes Neck no lymphadenopathy and supple General: Negative for tenderness Chest Wall Chest: Negative for tenderness Resp normal respiratory effort and normal air movement Effort and Inspection: symmetric chest movement; Negative for respiratory distress Cardio regular rate, regular rhythm and no murmurs Peripheral Pulses: pulses 2+ throughout GI normal to inspection, nondistended, normoactive bowel sounds and non-tender Palpation: Negative for guarding or rebound tenderness present Back/Spine no CVA tenderness and no thoracic nor lumbar tenderness Extremity normal to inspection General Extremety ED: Negative for edema or tenderness General Extremity: Negative for edema Neuro oriented x3, CN's II-XII intact bilaterally and no sensory deficits noted Sensorium / Orientation: awake and alert Skin no rashes or lesions noted and no wounds MDM MDM MDM Narrative Medical decision making narrative: Interventions / MDM: Differential diagnosis: ACS, cardiac dysrhythmia Diagnosis considered but do not suspect: Pulmonary embolism however PERC criteria negative My EKG interpretation: Sinus rhythm with no acute findings Imaging independently reviewed and interpreted by myself: 2 view chest x-ray negative for acute findings. No PE, no pneumothorax External documents reviewed: Previous ER visits Test considered but not ordered:N/A ED course: Patient blood pressure 155/96 on arrival. Chest pains with palpitations, cardiac work-up which was negative. PE RC criteria negative. Blood pressure improved 135/99 on reevaluation without intervention. She is on metoprolol twice daily for her palpitation SVT history. She has an appointment this afternoon with her PCP, discussed maintaining and keeping this appointment for potential treatment for diastolic pressures. She understands this. Outpatient follow-up with return precautions. All questions were answered. Re-evaluation: stable and improved Disposition discussed with patient/family/significant other: Patient Case discussed with consulting clinician: N/A Lab Data Attestation: I reviewed the patient's lab results. Labs: Laboratory Results - last 24 hr 10/08/22 10/08/22 10:00 10:00 WBC 6.6 RBC 5.09 Hgb 13.0 Hct 40.1 MCV 78.8 L MCH 25.5 L MCHC 32.4 RDW Std Deviation 43.1 RDW Coeff of Chay 15.0 H Plt Count 309 MPV 9.9 Immature Gran % (Auto) 0.300 Neut % (Auto) 64.4 Lymph % (Auto) 24.0 [place] % (Auto) 5.8 Eos % (Auto) 5.0 Baso % (Auto) 0.5 Absolute Neuts (auto) 4.2 Absolute Lymphs (auto) 1.58 Nucleated RBC % 0 Sodium 139 Potassium 4.3 Chloride 107 Carbon Dioxide 25.0 Anion Gap 7 BUN 14 Creatinine 0.78 Estim Creat Clear Calc 89.41 Est GFR (MDRD) Af Amer 111 Est GFR (MDRD) Non-Af 91 BUN/Creatinine Ratio 18.1 Glucose 93 Calcium 8.5 Troponin I High Sens 4 EKG Initial EKG: Attestation: I personally reviewed and interpreted this EKG as follows: Comments: Sinus rhythm 59, no ST or T wave changes QTc 433. Discharge Plan Triage Chief Complaint: Hypertension ED Provider: Chin Williamson Dx/Rx/DC Orders Clinical Impression: Elevated blood pressure reading in office without diagnosis of hypertension, Palpitation, Chest pain Prescriptions: No Action trazodone 50 mg Tablet 50 mg PO QHS PRN (Reason: Insomnia) prazosin 1 mg capsule 2 mg PO QHS fluvoxamine 100 mg tablet 100 mg PO BID Label Comments: TAKE 1/2 (ONE-HALF) TABLET BY MOUTH ONCE DAILY IN THE MORNING AND 1 TABLET EVERY DAY AT BEDTIME FOR 7 DAYS THEN GO TO 1 TABLET TWICE DAILY buspirone 10 mg Tablet 10 mg PO TID ondansetron 4 mg tablet,disintegrating 4 mg PO Q6H PRN (Reason: nausea and vomiting) Qty: 20 0RF ondansetron 4 mg tablet,disintegrating 4 mg PO Q6H PRN (Reason: nausea and vomiting) Qty: 14 0RF metoprolol tartrate 25 mg tablet 12.5 mg PO BID Qty: 30 0RF Primary Care Provider: Care Physician,No Primary Referrals: Care Physician,No Primary [Primary Care Provider] - Activity Restrictions/Additional Instructions: Arrival blood pressure 155/96, without intervention 135/99. You are restarted on your metoprolol 12.5 mg twice daily 2 weeks ago. Keep your follow-up with your doctor today scheduled later this afternoon for discussion for additional treatment as needed. Your cardiac work-up was negative. EKG sinus rhythm. Creatinine 0.7. Hemoglobin 13. Sodium 139, potassium 4.3. Disposition Disposition: Home, Self Care
[2022-10-08 10:17] LABS: Absolute Lymphocyte Count 1.58 X10^3/uL (0.83-4.51); Absolute Neutrophil Count 4.2 X10^3/uL (2.0-7.7); Basophil# 0.03 X10^3/uL; Basophil% 0.5 % (0-1); Eosinophil# 0.33 X10^3/uL; Hematocrit 40.1 % (37-47); Lymphocyte # 1.58 X10^3/ul (0.83-4.51); Mean Corp Hgb Conc 32.4 g/dL (32-36); Mean Corpuscular Hgb 25.5 pg (27.0-32.0); Mean Corpuscular Volume 78.8 fL (81-99); Mean Platelet Vol. 9.9 fl (6.2-12.0); Monocyte# 0.38 X10^3/uL; Monocyte% 5.8 % (0-10); NRBC Flagged by Analyzer 0 % (0-5); Neutrophil # 4.24 X10^3/uL (2.7-7.7); Neutrophil % 64.4 % (47-70); Platelet Count 309 K/mm3 (150-450); RBC Distribution Width SD 43.1 fl (35.1-43.9); Red Blood Count 5.09 M/mm3 (4.2-5.4); White Blood Count 6.6 K/mm3 (4.4-11.0)
[2022-10-08 10:28] LABS: Anion Gap 7 (5-15); BUN 14 mg/dL (7-18); BUN/Creat Ratio 18.1 RATIO (10-20); Calcium,Total 8.5 mg/dL (8.5-10.1); Chloride 107 mmol/L (98-107); Creatinine, Serum 0.78 mg/dL (0.55-1.02); EST Glomerular Filtration Rate 91 mL/min (>60); Est Glom Filt Rate - Afr Amer 111 mL/min (>60); Estimated Creatinine Clearance 89.41 ml/min; Glucose 93 mg/dL (74-106); Potassium 4.3 mmol/L (3.5-5.1); Sodium Level 139 mmol/L (136-145); Troponin-I HS 4 pg/mL (3.0-54.0)
--- NOTE | 2022-10-08 10:35 | RAD_ITS ---
STUDY: X-RAY CHEST REASON FOR EXAM: Female, 32 years old. Hypertension. Shortness of breath dizziness and headaches. TECHNIQUE: PA and lateral views of the chest. COMPARISON: Comparison is made with prior examination of 09/25/2022. FINDINGS: EKG electrodes are seen. The lungs are clear and expanded. There is no demonstrated pleural abnormality. Normal size heart. Normal mediastinum and john. Normal visualized pulmonary arteries. Normal visualized aortic arch and descending thoracic aorta. Normal visualized thoracic spine. Normal visualized ribs, clavicles, and shoulders. There is no demonstrated abnormality of the visualized soft tissue structures of the upper abdomen. RAD/Chest PA and Lateral IMPRESSION: Normal x-ray examination of the chest. Electronically Signed: Lai Stevenson MD at 10:51 EST ,
[2022-10-08 11:01] VITALS: BP 125/104; PULSE 66; RESP 16; O2SAT 99
== END 2022-10-08 11:02 | disposition home or self-care (01) ==
PROVIDERS: Emergency Provider Emergency Medicine; Visit Provider Emergency Medicine
DX: R03.0 Elevated blood-pressure reading, without diagnosis of hypertension (principal); R00.2 Palpitations; R07.9 Chest pain, unspecified; Z87.891 Personal history of nicotine dependence
CPT/HCPCS: 71046; 80048; 84484; 85025; 93005; 99284; A4216

== ENCOUNTER 2023-10-15 23:12 | Emergency (ER) | payer MEDICAID, SELFPAY ==
[2023-10-15 23:14] VITALS: BP 146/100; PULSE 87; RESP 16; TEMP 36.8; O2SAT 100; BMI 48.4
[2023-10-15 23:20] VITALS: BP 147/104; PULSE 80; RESP 16; TEMP 36.8; O2SAT 99
--- NOTE | 2023-10-15 23:33 | EDS_ITS ---
HPI History of Present Illness Chief Complaint: Chest Pain Informant: patient Narrative Narrative: Patient presents with several manage episodes of substernal chest tightness occasionally radiating into her left arm, associated with lightheadedness, dyspnea, and racing heartbeat sometimes. Today is the third episode she has had in the past 4 to 5 days. However these episodes of the first time she has had any of the symptoms since she had a cardiac ablation for SVT in March of this past year. That was at [facility], her heart doctor is at [facility] in [place]. She does not remember who they are. She also states there was 1 episode yesterday where her Apple Watch told her her heart rate was in the 170s and she did not have any symptoms. At this moment she is asymptomatic. Denies any other recent illness or medication changes. She states there were 2 areas that were ablated during her procedure, and she was told that one of them was close to the heart electrical system and was not able to be completely ablated. [facility] Medical History Asthma SVT (supraventricular tachycardia) Home Medications buspirone 10 mg tablet 10 mg PO TID 04/20/22 [History Last Taken Unknown] fluvoxamine 100 mg tablet 100 mg PO BID 04/20/22 [History Last Taken Unknown] ondansetron 4 mg disintegrating tablet 4 mg PO Q6H PRN nausea and vomiting #20 tabs 04/20/22 [Rx Last Taken Unknown] prazosin 1 mg capsule 2 mg PO QHS 04/20/22 [History Last Taken Unknown] trazodone 50 mg tablet 50 mg PO QHS PRN Insomnia 04/20/22 [History Last Taken Unknown] ondansetron 4 mg disintegrating tablet 4 mg PO Q6H PRN nausea and vomiting #14 tabs 08/22/22 [Rx Last Taken Unknown] metoprolol tartrate 25 mg tablet 12.5 mg (1/2 x 25 mg) PO BID #30 tabs 09/25/22 [Rx Last Taken Unknown] Allergy/AdvReac Type Severity Reaction Status Date / Time phenytoin [From Dilantin] Allergy SEIZURES Verified 10/15/23 23:13 Social History Smoking Status: Former smoker ROS ROS ED Constitutional Constitutional ED: Denies chills or fever(s) Eyes Eyes: Denies change in vision or diplopia ENT ENT ED: Denies rhinorrhea or sore throat Cardiovascular Cardiovascular: Reports chest pain, lightheadedness, racing heartbeat and radiating jaw, neck or arm pain; Denies syncope Respiratory/Chest Respiratory/Chest: Reports dyspnea; Denies cough Gastrointestinal Gastrointestinal: Denies abdominal pain, diarrhea, nausea or vomiting Genitourinary Genitourinary ED: Denies dysuria or hematuria Musculoskeletal Musculoskeletal: Denies back pain or neck pain Integumentary Denies abscess or rash Neurologic Neurologic: Denies headache(s), paresthesias or weakness Psychiatric Psychiatric: Denies anxiety or suicidal thoughts EXAM Physical Exam Const Vital Signs: 10/15/23 23:14 10/15/23 23:20 10/15/23 23:50 Temperature 98.3 F 98.3 F Temperature Source Oral Oral Pulse Rate 87 80 Respiratory Rate 16 16 Blood Pressure 146/100 H 147/104 H Blood Pressure Mean 115 118 Pulse Ox 100 99 98 Oxygen Delivery Method Room Air Room Air Room Air 10/16/23 02:39 Temperature 97.1 F L Temperature Source Pulse Rate 88 Respiratory Rate 17 Blood Pressure 149/99 H Blood Pressure Mean 115 Pulse Ox 99 Oxygen Delivery Method Positive well nourished, well developed and obese General Appearance ED: well developed and NAD Nutritional Appearance: obese HEENT Reports moist mucous membranes normocephalic and atraumatic Eyes PERRL and EOMs intact bilaterally Neck full ROM, supple and no JVD Chest Wall inspection of chest normal and palpation of chest normal Resp normal respiratory effort and clear to auscultation bilaterally Cardio regular rate, regular rhythm and no murmurs Rate: Negative for tachycardic GI non-tender and non-distended Auscultation: normoactive bowel sounds Palpation: soft Back/Spine no CVA tenderness General Back: other FROM Extremity normal to inspection General Extremety ED: Negative for edema, pulses abnormal or tenderness General Extremity: Negative for edema or pulses abnormal Neuro oriented x3, CN's II-XII intact bilaterally and no sensory deficits noted Sensorium / Orientation: awake and alert Motor Exam: strength 5/5 throughout Psych mental status grossly normal Skin no rashes or lesions noted and no wounds Heart Score History: Moderately Suspicious ECG: Normal Age: </= 45 years Risk Factors: 1 or 2 Risk Factors (hx smoking) Troponin: </= Normal Limit Score: 2 MDM MDM MDM Narrative Medical decision making narrative: Patient states that the same symptoms she was having with episodes of SVT prior to her ablation. At this time her rhythm is normal and she is asymptomatic. Plan is to watch her on the monitor, perform labs, 1 view chest x-ray my interpretation is negative for any acute pathology as expected, and we will get 2 sets of enzymes. If negative and she does not have any repeat episodes, I think at this time it would be reasonable for her to follow-up for a Holter monitor and see her professional volleyball player again, continuing her current medications given that her vital signs are stable. I discussed this with her. Second set of enzymes negative as well. 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 Therefore I am not able to get her one of the Holter monitors that are meant to be for patients within our heart group, and she will need to follow-up in the morning with her professional volleyball player. She is understanding and okay with that plan. Lab Data Attestation: I reviewed the patient's lab results. Labs: Laboratory Results - last 24 hr 10/15/23 23:49 WBC 11.0 RBC 5.05 Hgb 11.7 L Hct 38.7 MCV 76.6 L MCH 23.2 L MCHC 30.2 L RDW Std Deviation 41.8 RDW Coeff of Chay 15.2 H Plt Count 374 MPV 9.8 Immature Gran % (Auto) 0.500 Neut % (Auto) 61.1 Lymph % (Auto) 27.8 [place] % (Auto) 6.7 Eos % (Auto) 3.6 Baso % (Auto) 0.3 Absolute Neuts (auto) 6.7 Absolute Lymphs (auto) 3.06 Nucleated RBC % 0 Sodium 139 Potassium 3.5 Chloride 107 Carbon Dioxide 25.0 Anion Gap 7 BUN 9 Creatinine 0.74 Estim Creat Clear Calc 143.49 Est GFR (MDRD) Af Amer 115 Est GFR (MDRD) Non-Af 95 BUN/Creatinine Ratio 12.1 Glucose 100 Calcium 8.7 Troponin I High Sens 4 Radiography Diagnostic Testing: Clinical Impression(s) from Imaging Studies Chest X-Ray 10/15/23 23:33 IMPRESSION: No radiographic evidence of acute cardiopulmonary disease. Electronically Signed: Yonny Medrano MD at 0:06 EST , Rhythm Strip Rhythm Strip: Sinus Rhythm Rate: 80 Ectopy: None EKG Initial EKG: Attestation: I personally reviewed and interpreted this EKG as follows: Interpretation: Sinus Rhythm and No Acute Injury Pattern Discharge Plan Triage Chief Complaint: Chest Pain ED Provider: Zackery Sauer Dx/Rx/DC Orders Clinical Impression: Intermittent palpitations, Chest pain Instructions: ED About Arrhythmias, ED Chest Pain, Uncertain Cause Prescriptions: No Action trazodone 50 mg Tablet 50 mg PO QHS PRN (Reason: Insomnia) prazosin 1 mg capsule 2 mg PO QHS fluvoxamine 100 mg tablet 100 mg PO BID Patient Comments: TAKE 1/2 (ONE-HALF) TABLET BY MOUTH ONCE DAILY IN THE MORNING AND 1 TABLET EVERY DAY AT BEDTIME FOR 7 DAYS THEN GO TO 1 TABLET TWICE DAILY buspirone 10 mg Tablet 10 mg PO TID ondansetron 4 mg tablet,disintegrating 4 mg PO Q6H PRN (Reason: nausea and vomiting) Qty: 20 0RF ondansetron 4 mg tablet,disintegrating 4 mg PO Q6H PRN (Reason: nausea and vomiting) Qty: 14 0RF metoprolol tartrate 25 mg tablet 12.5 mg PO BID Qty: 30 0RF Primary Care Provider: Care Physician,No Primary Referrals: Philosophy Instructor, your [Other] - As soon as possible (Call in the morning to see if you can get a 48-hour Holter monitor (or an event monitor) placed as soon as you are able.) Disposition Disposition: Home, Self Care Discharge Date/Time: 10/16/23 02:39
--- NOTE | 2023-10-15 23:33 | EKG12_ITS ---
Test Reason : CP Blood Pressure : / mmHG Vent. Rate : 087 BPM Atrial Rate : 087 BPM P-R Int : 120 ms QRS Dur : 084 ms QT Int : 378 ms P-R-T Axes : 036 044 007 degrees QTc Int : 454 ms Normal sinus rhythm Nonspecific ST and T wave abnormality Borderline Confirmed by Eagle Fisher ([id number]), greeting card editor ALEXANDER LAWRENCE ([id number]) on 10/16/2023 10:59:14 AM Referred By: ALISSA Confirmed By:Eagle Fisher
--- NOTE | 2023-10-15 23:33 | RAD_ITS ---
INDICATION: chest pain EXAMINATION/TECHNIQUE: X-RAY - XR Chest 1 View COMPARISON: None. FINDINGS: LINES/DEVICES: None. LUNGS: No consolidation, edema or effusion. No pneumothorax. MEDIASTINUM AND CARDIOVASCULAR STRUCTURES: Cardiac silhouette not enlarged. BONES AND SOFT TISSUES: Unremarkable. RAD/Chest 1 View (Portable) IMPRESSION: No radiographic evidence of acute cardiopulmonary disease. Electronically Signed: Yonny Medrano MD at 0:06 EST ,
[2023-10-15 23:50] VITALS: O2SAT 98
[2023-10-15 23:59] LABS: Absolute Lymphocyte Count 3.06 X10^3/uL (0.83-4.51); Absolute Neutrophil Count 6.7 X10^3/uL (2.0-7.7); Basophil# 0.03 X10^3/uL; Basophil% 0.3 % (0-1); Eosinophils% 3.6 % (0-5); Hematocrit 38.7 % (37-47); Hemoglobin 11.7 g/dL (12.0-15.0); Lymphocyte # 3.06 X10^3/ul (0.83-4.51); Lymphocyte % 27.8 % (19-41); Mean Corp Hgb Conc 30.2 g/dL (32-36); Mean Corpuscular Hgb 23.2 pg (27.0-32.0); Mean Corpuscular Volume 76.6 fL (81-99); Mean Platelet Vol. 9.8 fl (6.2-12.0); Monocyte# 0.74 X10^3/uL; Monocyte% 6.7 % (0-10); NRBC Flagged by Analyzer 0 % (0-5); Neutrophil # 6.73 X10^3/uL (2.7-7.7); Neutrophil % 61.1 % (47-70); Platelet Count 374 K/mm3 (150-450); RBC Distribution Width CV 15.2 % (11.6-14.6); RBC Distribution Width SD 41.8 fl (35.1-43.9); Red Blood Count 5.05 M/mm3 (4.2-5.4)
[2023-10-16 00:18] LABS: Anion Gap 7 (5-15); BUN 9 mg/dL (7-18); BUN/Creat Ratio 12.1 RATIO (10-20); Calcium,Total 8.7 mg/dL (8.5-10.1); Chloride 107 mmol/L (98-107); Creatinine, Serum 0.74 mg/dL (0.55-1.02); EST Glomerular Filtration Rate 95 mL/min (>60); Est Glom Filt Rate - Afr Amer 115 mL/min (>60); Estimated Creatinine Clearance 143.49 ml/min; Glucose 100 mg/dL (74-106); Potassium 3.5 mmol/L (3.5-5.1); Sodium Level 139 mmol/L (136-145); Troponin-I HS (w/2H Reflex) 4 pg/mL (3.0-54.0)
[2023-10-16 02:38] LABS: Reflex Troponin-HS? (from REC) Y
[2023-10-16 02:39] VITALS: BP 149/99; PULSE 88; RESP 17; TEMP 36.2; O2SAT 99
[2023-10-16 07:54] LABS: Troponin-I HS < 3 pg/mL (3.0-54.0)
== END 2023-10-16 02:39 | disposition home or self-care (01) ==
PROVIDERS: Emergency Provider Emergency Medicine; Visit Provider Emergency Medicine
DX: R00.2 Palpitations (principal); R07.9 Chest pain, unspecified; E66.9 Obesity, unspecified; Z87.891 Personal history of nicotine dependence
CPT/HCPCS: 71045; 80048; 84484; 85025; 93005; 99283; A4216